=== PATIENT | female | born 1950 | race Hispanic/Latino ===

== ENCOUNTER 2018-05-20 07:42 | Day surgery (SDC) | payer MEDICARE, BC ==
[2018-05-18 12:00] VITALS: BMI 26.9
[2018-05-20] MEDS ORDERED: Lidocaine 4% (Laryng-O-Jet) Kit MM ONE (08:36)
[2018-05-20] MEDS ORDERED: Propofol 10 mg/ml Inj (20 ML) ONE ×2 (08:42→08:43)
[2018-05-20] MEDS ORDERED: Etomidate 20 mg/10ml Inj IV ONE (08:48)
--- NOTE | 2018-05-21 20:36 | CARD ---
APPROVED REPORT Date of service: 05/20/2018 EXAM: Transesophageal echocardiogram with color flow Doppler and saline bubble. INDICATION CVA/TIA Echo Enhancing Agent Indication: Rule Out Septal Defect Agent/Amount Used: Agitated Saline Mitral Valve E/A ratio0.0 TDI E/Lateral E'0.0E/Medial E'0.0 Reason For Test : Rule out cardiac source of emboli. PROCEDURE After obtaining informed consent, patient underwent transesophageal echo in the [employer]. Type of Sedation : Conscious Sedation Sedation was provided by anesthesiologist. Sedation was achieved with intravenously. The CALLIE was performed complications. Throughout the procedure, the blood pressure, pulse oximetry, cardiac rhythm, and rate were monitored. The patient tolerated the procedure without adverse effects. Recovery from conscious sedation was uneventful and vital signs were stable. LEFT VENTRICLE The left ventricle is normal size. There is mild concentric left ventricular hypertrophy. The left ventricular function is normal. The left ventricular ejection fraction is within the normal range. There is normal LV segmental wall motion. No left ventricle thrombus noted on this study. There is no ventricular septal defect visualized. There is no left ventricular aneurysm. RIGHT VENTRICLE The right ventricle is normal size. The right ventricular systolic function is normal. ATRIA The left atrium is mildly dilated. The right atrium size is normal. The interatrial septum is intact with no evidence for an atrial septal defect. 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 There is no aortic valvular stenosis. There is no aortic valvular vegetation. MITRAL VALVE Mitral annular calcification is mild to moderate. There is no evidence of mitral valve prolapse. There is no mitral valve stenosis. Mitral regurgitation is mild. TRICUSPID VALVE The tricuspid valve is normal in structure. There is mild tricuspid regurgitation. There is no tricuspid valve stenosis. PULMONIC VALVE The pulmonary valve is normal in structure. GREAT VESSELS The aortic root is normal in size. <Conclusion> The left ventricular function is normal. The left ventricular ejection fraction is within the normal range. The right ventricular systolic function is normal. The left atrium is mildly dilated. S/P TAVR (Bioprosthetic Aortic valve with normal function) Mitral annular calcification is mild to moderate. Mitral regurgitation is mild. There is mild tricuspid regurgitation.
--- NOTE | 2018-05-22 18:14 | VASCLAB ---
Date of service: 05/20/2018 PROCEDURE: Carotid Duplex Exam. HISTORY: G45.9, I10 COMPARISON: None available. TECHNIQUE: Grayscale and duplex Doppler evaluation of the cervical carotid and vertebral arteries were performed. The common carotid, carotid bifurcations and cervical Internal Carotid Artery (ICA) and proximal External Carotid Artery (ECA) were evaluated. The vertebral arteries were evaluated for gross patency and flow direction. Report prepared by JHOANA Lewis FINDINGS: RIGHT CAROTID ARTERIES: 1. Common Carotid Artery: No significant focal plaque formation of the right common carotid artery. Maximum Peak Systolic velocity: 119 cm/sec: End-diastolic velocity 12 cm/sec. 2. Carotid Bifurcation: Heterogeneous plaque formation. Maximum Peak Systolic velocity: 50 cm/sec: End-diastolic velocity 12 cm/sec. 3. Internal Carotid Artery: Minimal homogeneous plaque. 3.1. Proximal Segment: Peak systolic velocity 69 cm/sec: End-diastolic velocity 16 cm/sec - % stenosis 0-15% 3.2. Middle Segment: Peak systolic velocity 71 cm/sec: End-diastolic velocity 18 cm/sec - % stenosis 0-15% 3.3. Distal Segment: Peak systolic velocity 61 cm/sec: End-diastolic velocity 18 cm/sec - % stenosis 0-15% 4. External Carotid Artery: No significant focal plaque formation. Peak systolic velocity 126 cm/sec 5. ICA/CCA Ratio: 0.9 LEFT CAROTID ARTERIES: 1. Common Carotid Artery: No significant focal plaque formation of the left common carotid artery. Maximum Peak Systolic velocity: 80 cm/sec: End-diastolic velocity 9 cm/sec. 2. Carotid Bifurcation: Heterogeneous plaque formation. Maximum Peak Systolic velocity: 50 cm/sec: End-diastolic velocity 0 cm/sec. 3. Internal Carotid Artery: Mild heterogeneous plaque. Intimal hyperplasia. 3.1. Proximal Segment: Peak systolic velocity 68 cm/sec: End-diastolic velocity 16 cm/sec - % stenosis 0-15% 3.2. Middle Segment: Peak systolic velocity 56 cm/sec: End-diastolic velocity 13 cm/sec - % stenosis 0-15% 3.3. Distal Segment: Peak systolic velocity 60 cm/sec: End-diastolic velocity 19 cm/sec - % stenosis 0-15% 4. External Carotid Artery: No significant focal plaque formation. Peak systolic velocity 96 cm/sec 5. ICA/CCA Ratio: 1.1 VERTEBRAL ARTERIES: 1. Right Vertebral Artery: Absent end diastolic flow of the right vertebral artery. 2. Left Vertebral Artery: The left vertebral artery flow direction is antegrade. OTHER FINDINGS: 1. Right Brachial Blood pressure: 180/70 mmHg. 2. Left Brachial Blood pressure: 160/70 mmHg. Increased velocity at the proximal left subclavian artery, suggesting <50% stenosis. IMPRESSION: RIGHT: Duplex scan does not suggest hemodynamically significant stenosis of the right extracranial carotid arteries. LEFT: Duplex scan does not suggest hemodynamically significant stenosis of the left extracranial carotid arteries.
== END 2018-05-20 13:30 | disposition home or self-care (01) ==
LOC: C.CATHLAB 07:42
PROVIDERS: ATTEND Internal Medicine Cardiovascular Disease
DX: H53.19 Other subjective visual disturbances (principal); G45.8 Other transient cerebral ischemic attacks and related syndromes; I08.1 Rheumatic disorders of both mitral and tricuspid valves
CPT/HCPCS: 93005; 93312; 93880; J2001; J2704